=== PATIENT | male | born 1945 | race Caucasian/White ===

== ENCOUNTER 2024-04-27 15:23 | Outpatient (CLI) | payer MEDICARE | END 2024-04-27 15:24 | disposition home or self-care (01) | LOC: RAD 15:23 | PROVIDERS: ATTEND Student in an Organized Health Care Education/Training Program | DX: I25.110 Atherosclerotic heart disease of native coronary artery with unstable angina pectoris (principal); I51.7 Cardiomegaly | CPT/HCPCS: 71046 ==